=== PATIENT | female | born 1975 | race Caucasian/White ===

== ENCOUNTER 2016-05-06 12:17 | Day surgery (SDC) | payer OTHER ==
[2016-05-06 12:35] VITALS: BP 124/80; PULSE 70; RESP 20; TEMP 97.6
[2016-05-06] MEDS ORDERED: ALPRAZolam 0.5 MG TAB PO ONE (12:36)
--- NOTE | 2016-05-06 14:00 | US ---
EXAMINATION TYPE: US FNA thyroid DATE OF EXAM: 05/06/2016 1:49 PM COMPARISON: 16 April 2016 HISTORY: Thyroid nodule, E04.1 Maximal barrier technique was utilized. Ultrasound using sterile technique. The skin overlying the no dule was localized with ultrasound and the overlying skin prepped and draped. Lidocaine used for loca l anesthesia. 5 passes with a 25-gauge needle were made into the nodule under ultrasound guidance. As pirate specimen submitted to cytology. Following the procedure hemostasis achieved. No immediate comp lication IMPRESSION: Status post ultrasound-guided fine-needle aspiration of thyroid nodule, pathology pending .
== END 2016-05-06 13:55 | disposition home or self-care (01) ==
LOC: RADPROMAIN 12:17
PROVIDERS: ATTEND Surgery
DX: E04.1 Nontoxic single thyroid nodule (principal)
CPT/HCPCS: 10022; 76942; 88173; 88305

== ENCOUNTER → 2017-07-22 | Outpatient (CLI) | payer OTHER ==
--- NOTE | 2017-07-23 17:48 | US ---
EXAMINATION TYPE: US thyroid st tissue head/neck DATE OF EXAM: 07/22/2017 COMPARISON: Thyroid ultrasound April 16, 2016 CLINICAL HISTORY: C73 Malignant neoplasm of thyroid gland. bilateral thyroidectomy GLAND SIZE: Right Lobe: Surgically absent Left Lobe: Surgically absent Isthmus Thickness: Surgically absent NODULES RIGHT: no residual tissue appreciated LEFT: no residual tissue appreciated ISTHMUS: no residual tissue appreciated Bilateral neck scanned, no evidence of lymphadenopathy. Interval resection of total resection of thyroid. Scanning of the thyroid bed shows no suspicious res idual tissue or abnormal adenopathy on the images saved. IMPRESSION: As above.
== END | disposition home or self-care (01) ==
LOC: RADUSWWP 16:13
PROVIDERS: ATTEND Internal Medicine Endocrinology, Diabetes & Metabolism
DX: C73 Malignant neoplasm of thyroid gland (principal)
CPT/HCPCS: 76536

== ENCOUNTER → 2017-11-18 | Outpatient (CLI) | payer OTHER ==
--- NOTE | 2017-11-20 13:43 | NM ---
Nuclear medicine whole body scan Indication: Thyroid cancer Patient received 4 mCi iodine-131 [facility]. Due to Equipment failure, images were ob tained at this location. Whole-body imaging is performed at 48 hours post administration. Spot imaging is performed over the head and neck and over the abdomen. FINDINGS: There is mild radiotracer through the colon do to normal colonic excretion. Small amount of radiotracer is identified within the salivary glands. Suspicious focal uptake is not identified. Thyroid bed appears to have normal background. No focal ab normal areas of uptake are identified. Spot imaging is performed over the head and neck and over the abdomen. IMPRESSIONS: 1. No suspicious focal uptake to suggest metastatic disease.
== END ==
LOC: RADNMMAIN 13:20 → EDSTATUS 14:00
PROVIDERS: ATTEND Internal Medicine Endocrinology, Diabetes & Metabolism
DX: C73 Malignant neoplasm of thyroid gland (principal)
CPT/HCPCS: 78018

== ENCOUNTER → 2018-08-03 | Outpatient (CLI) | payer OTHER ==
--- NOTE | 2018-08-03 13:21 | US ---
EXAMINATION TYPE: US thyroid st tissue head/neck DATE OF EXAM: 08/03/2018 COMPARISON: Ultrasound July 22, 2017. Whole-body nuclear medicine iodine-131 study November 18, 2017. CLINICAL HISTORY: C73 Malignant neoplasm of thyroid gland. GLAND SIZE: Right Lobe: Surgically absent Left Lobe: Surgically absent Isthmus Thickness: Surgically absent NODULES RIGHT: no residual tissue seen LEFT: no residual tissue seen ISTHMUS: no residual tissue seen Bilateral neck scanned, no suspicious adenopathy. IMPRESSION: No suspicious recurrent tissue or new suspicious adenopathy on images saved at level of thyroid bed.
== END | disposition home or self-care (01) ==
LOC: RADUSWWP 12:47
PROVIDERS: ATTEND Internal Medicine Endocrinology, Diabetes & Metabolism
DX: C73 Malignant neoplasm of thyroid gland (principal)
CPT/HCPCS: 76536

== ENCOUNTER → 2022-07-16 | Outpatient (CLI) | payer BC ==
--- NOTE | 2022-07-16 10:34 | BD ---
EXAMINATION TYPE: Axial Bone Density DATE OF EXAM: 07/16/2022 CLINICAL HISTORY: 47 years old Female. ICD-10 CODE: Z78.0 Post menopausal without HRT Height: 62 Weight: 176 FRAX RISK QUESTIONS: Alcohol (3 or more units per day): no Family History (Parent hip fracture): no Glucocorticoids (More than 3mos): no History of Fracture in Adulthood: no Secondary Osteoporosis: 1. Type 1 Diabetes: no 2. Hyperthyroidism: no 3. Menopause before 45: yes 4. Malnutrition: no 5. Chronic liver disease: no Rheumatoid Arthritis: no Current Tobacco Use: no RISK FACTORS HISTORY OF: Hip Fracture (Right/Left): no Spine Fracture: no History of Wrist Fracture: no Surgery to Spine/Hip(right/left)/Wrist (right/left): no Family History of Osteoporosis: no Active: yes Diet low in dairy products/other sources of calcium: yes Postmenopausal woman: no Take estrogen and/or progesterone medications: no Lost more than 2 inches in height since high school: no Frequent falls: yes Poor Health: no Hyperparathyroidism: no Adrenal Insufficiency: no MEDICATIONS: Prednisone or other steroids: no Thyroid Medications: Synthroid How Long: past 5 years Osteoporosis Medications: no Additional Medications: BP Meds x2, depression, vit d, Additional History: Thyroid Ca 5 years ago, thyroid removed with radiation EXAM MEASUREMENTS: Bone mineral densitometry was performed using the [employer] System. Bone mineral density as measured about the Lumbar spine is: ----- L1-L4(G/cm2): 1.071 T Score Values are as follows: ----- L1: -1.4 ----- L2: -0.6 ----- L3: -0.5 ----- L4: -1.3 ----- L1-L4: -0.9 Z Score Values are as follows: ----- L1: -1.9 ----- L2: -1.0 ----- L3: -1.0 ----- L4: -1.7 ----- L1-L4: -1.4 Baseline Study Bone mineral density about the R hip (g/cm2): 1.171 Bone mineral density about the L hip (g/cm2): 1.199 T Score values are as follows: -----R Neck: -0.1 -----L Neck: -0.3 -----R Total: 1.3 -----L Total: 1.5 Z Score values are as follows: -----R Neck: 0.1 -----L Neck: 0.0 -----R Total: 1.2 -----L Total: 1.5 Baseline Study FRAX%s: The graph provided illustrates a 2.3% % chance for a major osteoporotic fx and a 0.1%% chance for the hips probability for fx in 10 years time. IMPRESSION: Normal (Values between +1 and -1 indicate normal bone mass). Consider repeating this study in 5 year s or sooner if there is some new clinical indication. NOTE: T-SCORE=SD OF THE YOUNG ADULT MEAN.
--- NOTE | 2022-07-19 16:39 | MM ---
Reason for Exam: Screening (asymptomatic). Last mammogram was performed 7 year(s) and 4 month(s) ago. Patient History: Menarche at age 13. First Full-Term at age 23. Perimenopausal. Patient has history of breast feeding. Risk Values: Geraldine 5 year model risk: 0.8%. NCI Lifetime model risk: 9.4%. Prior Study Comparison: 02/28/2015 Bilateral Screening Mammogram, [facility]. 03/07/2015 Right Diagnostic Mammogram, [facility]. Tissue Density: There are scattered fibroglandular densities. Findings: Analyzed By CAD. Pattern appears symmetrical and stable. No significant interval change is evident. Benign calcifications within each breast. No suspicious groups of microcalcifications, spiculated or lobular masses, architectural distortion or other secondary signs of malignancy are mammographically apparent. Overall Assessment: Benign, BI-RAD 2 Management: Screening Mammogram of both breasts in 1 year. A negative mammogram report should not preclude additional follow up of suspicious palpable abnormalities. Patient should continue monthly self breast exam. A clinical breast exam by your physician is recommended on an annual basis and results should be correlated with mammographic findings. Electronically signed and approved by: Fei Em D.O. Radiologis
== END | disposition home or self-care (01) ==
LOC: RADMAMWWP 07:00
PROVIDERS: ATTEND Family Medicine
DX: Z12.31 Encounter for screening mammogram for malignant neoplasm of breast (principal); M85.89 Other specified disorders of bone density and structure, multiple sites; Z78.0 Asymptomatic menopausal state
CPT/HCPCS: 77063; 77067; 77080

== ENCOUNTER → 2022-07-16 | Outpatient (CLI) | payer BC ==
--- NOTE | 2022-07-20 10:26 | US ---
EXAMINATION TYPE: US thyroid st tissue head/neck DATE OF EXAM: 07/16/2022 COMPARISON: 08-04 US CLINICAL HISTORY: E03.9 HYPOTHYROIDISM, UNSPECIFIED. prior complete thyroidectomy, pt feels like some thing is in her throat midline over thyroid bed when she swallows GLAND SIZE: Right Lobe: surgically removed; no residual tissue seen Left Lobe: surgically removed; no residual tissue seen Isthmus Thickness: surgically removed; no residual tissue seen Scanned over the midline area of concern, no abnormality noted by ultrasound. Bilateral neck scanned, no evidence of lymphadenopathy. IMPRESSION: Postoperative changes of total thyroidectomy. No distinct mass or nodule appreciated at this time.
== END | disposition home or self-care (01) ==
LOC: RADUSWWP 07:05
PROVIDERS: ATTEND Family Medicine
DX: E89.0 Postprocedural hypothyroidism (principal)
CPT/HCPCS: 76536